=== PATIENT | female | born 1970 | race Caucasian/White ===

== ENCOUNTER → 2016-12-19 | Outpatient (CLI) | payer BC ==
[~2016-12-19] MED LIST: ALPR0.5T PO; CYCL10TA2 PO; GADOBUTROL 10 MMOL/10 ML VIAL IV ONE; LEVO1TAB9 PO; LISI1TAB3 PO; METO25TA9 PO; VENL75CA PO
--- NOTE | 2016-12-19 11:03 | KCIC ---
PROCEDURE MRI brain without and with contrast. HISTORY Paresthesia of the skin, new onset numbness of the right arm and right leg TECHNIQUE Multiplanar, multi sequential pre and post contrast MR imaging was performed of the brain. Contrast: 10 cc [facility] COMPARISON None FINDINGS There is 2.1 cm AP by 1.7 cm transverse by 2.1 centimeter cc primarily T2 and T1 hyperintense lesion of the posterior left basal ganglia extending to the crabtree radiata. There is associated decreased signal on the gradient echo sequence most notable of the superior margin at the periphery although also seen centrally. There is a rim of T2 hypo intense signal. There is adjacent mild to moderate vasogenic edema signified by T2 and FLAIR hyperintense signal abnormality. Evaluation for underlying enhancement is limited due to the inherent T1 shortening. There is associated restricted diffusion of the lesion. There is suggestion of some faint linear branching enhancement at the superior margin of the lesion, no significant additional flow voids in this area. There is no restricted diffusion of the remainder of the parenchyma. There is no midline shift or extra-axial fluid collection. Ventricular size is within normal limits. There is preservation of the major arterial intracranial flow voids at the skull base. There is mild fluid and thickening of the inferior left mastoid air cells, other mild thickening bilaterally. Paranasal sinuses are overall aerated. Cerebellar tonsils are normal in location. There is nonspecific heterogeneity of the marrow of non expanded clivus. There is no significant abnormality of the pineal gland or pituitary gland. IMPRESSION 1. 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 While findings could be spontaneous, hypertensive hemorrhage would be a consideration if corresponding history. Hemorrhagic transformation of infarct is a possibility. Bleeding within underlying cavernous malformation/mixed vascular malformation would be a consideration. It is difficult to assess for underlying enhancement to evaluate for underlying mass due to the inherent T1 shortening. Short-term follow up such as in 6-8 weeks may be beneficial. Critical results were called to Khalida Alex December 19, 2016 at 11:02 a.m.. Electronically signed by: Colton Everett MD (December 19, 2016 11:03:06)
== END | disposition home or self-care (01) ==
LOC: KCIC MRI 09:39
PROVIDERS: ATTEND Physician Assistant Medical
DX: R20.2 Paresthesia of skin (principal); I10 Essential (primary) hypertension
CPT/HCPCS: 70553; A9585